=== PATIENT | male | born 1985 | race Two or more races ===

== ENCOUNTER 2016-11-09 21:27 | Emergency (ER) | payer MEDICAID, OTHER ==
[~2016-11-09] VITALS: Ht 180.3 cm; Wt 120.7 kg
[2016-11-10] MEDS ORDERED: HYDROmorphone HCL 2 MG/ML VL IM ONE (01:15)
[2016-11-10] MEDS ORDERED: ONDANSETRON HCL 4 MG/2 ML VIAL IM ONE (01:15)
[2016-11-10 03:17] VITALS: BP 149/78
[2016-11-10] MEDS ORDERED: MORPHINE SULFATE 4 MG/ML SYRG IM ONE (03:30)
== END 2016-11-10 04:04 | disposition home or self-care (01) ==
LOC: ER 21:30
DX: G43.909 Migraine, unspecified, not intractable, without status migrainosus (principal); I10 Essential (primary) hypertension; E11.9 Type 2 diabetes mellitus without complications; J45.909 Unspecified asthma, uncomplicated
CPT/HCPCS: 70450; 96372; 99284; J1170; J2270; J2405